=== PATIENT | male | born 1955 | race Asian ===

== ENCOUNTER → 2025-02-27 09:27 | Outpatient (CLI) | payer OTHER, SELFPAY | LOC: RESP 09:30 | PROVIDERS: PCP Family Medicine; Referring Provider Family Medicine; Visit Provider Family Medicine | DX: R06.09 Other forms of dyspnea (principal); J98.8 Other specified respiratory disorders; R94.2 Abnormal results of pulmonary function studies | CPT/HCPCS: 94060; 94726; 94729 ==

== ENCOUNTER → 2025-06-07 11:42 | Outpatient (CLI) | payer OTHER, SELFPAY ==
--- NOTE | 2025-06-26 22:03 | DI.NM.S_ITS ---
DATE OF SERVICE: 06/07/2025 NUCLEAR CARDIOLOGY MYOCARDIAL PERFUSION STUDY PROCEDURE PERFORMED: Exercise treadmill stress and rest myocardial perfusion imaging study with gating to assess ejection fraction and regional wall motion. ORDERING PROVIDER: Ela Oliveira M.D. INDICATIONS: The patient is a 70-year-old male with bradycardia, COPD, and exertional dyspnea. CARDIAC STRESS: The patient was able to exercise for 5 minutes 34 seconds on a standard Julio protocol suggesting moderately reduced exercise capacity with an SUJATHA of +19%, achieving 7.0 METS. He had a normal heart rate and blood pressure response to exercise with a resting heart rate of 62 bpm increasing to a maximum of 142 (93% of his predicted maximum). He had moderate exertional dyspnea but no chest discomfort or other anginal symptoms. His resting ECG is normal with normal ST segments. There are no significant ST-segment shifts or arrhythmias with stress. At 4 minutes 30 seconds of exercise at a heart rate of 133 bpm, 25.2 millicuries of technetium-99m Myoview was injected and he was imaged 15 minutes later using a gated SPECT acquisition protocol. He returned 16 days later and re-injected with an additional 27.1 millicuries of technetium- 99m Myoview and was imaged 15 minutes later, again using a gated SPECT acquisition protocol. FINDINGS: 1. Raw data. There is fairly good myocardial tracer uptake but with evidence for diaphragmatic attenuation. The lung/heart ratio is normal at 0.27 with a normal TID ratio of 0.76. 2. Quantitated gated SPECT: Post-stress ejection fraction is 75% without any focal wall motion abnormality and specifically the inferior wall has normal contractility. There is mildly increased tracer activity in the right ventricular free wall which can be a sign of right ventricular overload condition but clinical correlation is needed. The resting ejection fraction is 64% but visually appears unchanged from the post-stress ejection fraction. The resting end-diastolic volume is normal at 66 mL. 3. Myocardial perfusion imaging: Post-stress supine images show a fairly normal myocardial perfusion pattern except for a subtle defect in the mid inferior wall consistent with diaphragmatic attenuation, supported by its complete resolution on the prone images revealing a uniform, homogeneous perfusion pattern without any perfusion defects. The resting images are slightly compromised by some subdiaphragmatic tracer activity but the inferior defect grossly appears to be unchanged from the post-stress supine images without any obvious areas of improvement. IMPRESSION: 1. Normal myocardial perfusion study for ischemia. 2. Subtle, fixed inferior wall defect that completely resolves on prone imaging, consistent with diaphragmatic attenuation artifact. There is no evidence for myocardial ischemia or previous myocardial infarction. 3. Normal left ventricular size and systolic function without any focal abnormality. There is mildly increased right ventricular free wall tracer uptake which can be a sign of right ventricular overload condition but requires clinical correlation. 4. Moderately reduced exercise capacity without angina or ECG evidence of ischemia. There were no arrhythmias and he had a normal heart rate response to exercise, achieving a maximum heart rate of 142 bpm (93% of his predicted maximum). Lam Razo - ABISAI/sushma/NGOC doc#: [id number]/job#: [id number] dd: 06/26/2025 16:40:00 dt: 06/26/2025 21:49:00 DICTATING MD/COPIES TO: Dale Huang MD; Ela Oliveira M.D. COPIES MNE: MINDY;
== END ==
LOC: NUCM 11:42
PROVIDERS: PCP Family Medicine; Referring Provider Internal Medicine Cardiovascular Disease; Visit Provider Internal Medicine Cardiovascular Disease
DX: R06.02 Shortness of breath (principal)
CPT/HCPCS: 78452; 93017; A9502

== ENCOUNTER → 2025-06-23 12:34 | Outpatient (CLI) | payer OTHER, SELFPAY ==
--- NOTE | 2025-06-23 12:35 | DI.ECHO.S_ITS ---
[place] [facility] : : [address] : : [place] : : [id number] : : Phone: [phone] Echocardiogram Report + + :Name: LEXI SALEH Study Date: 06/23/2025 Height: 67 in : :[facility] ReadingLocation: Weight: 148 lb : : Gender: Male BSA: 1.8 m2 : :: 1955 Age: 70 yrs BP: 158/92 mmHg: :Reason For Study: Shortness of breath : :Ordering Physician: EMILY, : :ARNALDO Loaiza Performed By: Ciro Hoang : :Referring: ARNALDO DIAZ : + + Interpretation Summary Sinus bradycardia in the 40s. The ejection fraction is estimated to be 60-65%. Normal diastolic function. The right ventricle is normal in size and function. No significant valvular abnormalities. Pulmonary artery pressures cannot be estimated because of the lack of a measurable TR jet velocity but the IVC suggests a CVP of around 3 mmHg. Procedure: A two-dimensional transthoracic echocardiogram with color flow and Doppler was performed. The study quality was technically adequate. There is no prior echocardiogram noted for this patient. The patient was in a bradycardic rhythm during the exam. Left Ventricle: The left ventricle is normal in size and wall thickness. Left ventricular systolic function is normal. The ejection fraction is estimated to be 60-65%. There are no focal wall motion abnormalities. Normal diastolic function. Right Ventricle: The right ventricle is normal in size and function. Atria: The left atrial size is normal. Right atrial size is normal. There is no Doppler evidence for an interatrial shunt. Mitral Valve: The mitral valve leaflets appear to open well. There is no mitral valve stenosis. There is trace mitral regurgitation. Aortic Valve: The aortic valve is trileaflet. The aortic valve opens well. There is no aortic valve stenosis. No aortic regurgitation is present. Tricuspid Valve: The tricuspid valve leaflets are thin and pliable. There is trace tricuspid regurgitation. Pulmonary artery pressures cannot be estimated because of the lack of a measurable TR jet velocity but the IVC suggests a CVP of around 3 mmHg. Pulmonic Valve: The pulmonic valve is not well seen, but is grossly normal. There is trace pulmonic regurgitation. Great Vessels: The aortic root is normal size. The ascending aorta is normal in size. The aortic arch could not be visualized. The IVC is of normal diameter and collapses greater than 50% with a sniff. This suggests a low right atrial pressure of 3 mm Hg. Pericardium/ Pleura There is no pericardial effusion. MMode/2D Measurements & Calculations LVIDd: 4.6 cm LVOT diam: 2.0 cm LVIDs: 3.0 cm Ao root diam: 3.1 cm FS: 33.9 % asc Aorta Diam: 3.0 cm IVSd: 0.95 cm LVPWd: 0.93 cm LV tomlin. diameter/BSA (cm/m^2): 2.6 LV sys. diameter/BSA (cm/m^2): 1.7 LA A2 area: 13.0 cm2 RA long axis: 4.6 cm LA A4 area: 12.3 cm2 RA area: 10.4 cm2 LA length (vol): 4.5 cm RA vol: 19.7 ml LA vol: 29.9 ml RA : 11.1 ml/m2 LA vol index: 16.8 ml/m2 IVC diam: 1.3 cm RVD1 (basal): 2.7 cm RVD2 (mid): 2.4 cm TAPSE: 1.9 cm Doppler Measurements & Calculations Ao V2 max: 110.5 cm/sec LVOT Max Gio: 88.9 cm/sec Ao V2 mean: 75.6 cm/sec LV V1 max P.2 mmHg Ao max P.9 mmHg LV V1 VTI: 18.9 cm Ao mean P.6 mmHg QUENTIN(I,D): 2.3 cm2 Ao V2 VTI: 25.0 cm QUENTIN(V,D): 2.5 cm2 sev ratio: 0.75 QUENTIN indexed to BSA (cm^2/m^2): 1.3 MV E max gio: 55.0 cm/sec PA V2 max: 80.2 cm/sec MV A max gio: 47.6 cm/sec PA V2 mean: 57.7 cm/sec MV E/A: 1.2 PA mean P.5 mmHg Med Peak E' Gio: 7.2 cm/sec PA pr(Accel): 15.6 mmHg E/E' med: 7.7 Lat Peak E' Gio: 7.6 cm/sec E/E' lat: 7.2 E/e' average: 7.4 MV dec time: 0.22 sec SV(LVOT): 57.7 ml Reading Physician:06:21 PM
== END ==
LOC: NUCM 12:35
PROVIDERS: PCP Family Medicine; Referring Provider Internal Medicine Cardiovascular Disease; Visit Provider Internal Medicine Cardiovascular Disease
DX: R06.02 Shortness of breath (principal)
CPT/HCPCS: 93306

== ENCOUNTER → 2025-09-04 09:36 | Outpatient (CLI) | payer OTHER, SELFPAY ==
[2025-09-04 10:50] LABS: Add Manual Diff / Slide Review NO; Hematocrit 46.5 % (41-53); Hemoglobin 16.2 g/dL (13.5-17.5); Lymphocytes Absolute Auto 1100 /uL (1100-4500); Mean Corpuscular HGB Conc 34.8 % (30-36); Mean Corpuscular Hemoglobin 33.2 PG (26-34); Mean Corpuscular Volume 95.5 fL (80-100); Platelet Count 207 X10^3/uL (150-400)
[2025-09-04 10:58] LABS: Hemoglobin A1C% w Est Avg Glu 5.6 % (4.0-6.0)
[2025-09-04 11:27] LABS: Alanine Aminotransferase 34 IU/L (<50); Albumin 4.7 g/dL (3.5-5.0); Albumin Globulin Ratio 1.8 (1.0-2.8); Alkaline Phosphatase 58 U/L (38-126); Blood Urea Nitrogen 18 mg/dL (9-20); Calcium 9.3 mg/dL (8.4-10.2); Carbon Dioxide 27 mmol/L (22-32); Chloride 105 mmol/L (98-107); Cholesterol 216 mg/dL (140-199); Estimated Glomerular Filt Rate 59 mL/min (>60); Globulin 2.6 g/dL (1.7-4.1); Glucose 105 mg/dL (70-99); HDL Cholesterol 50 mg/dL (40-60); HEMOLYSIS < 15 (0-50); Potassium 4.6 mmol/L (3.4-5.1); Sodium 141 mmol/L (137-145); Total Protein 7.3 g/dL (6.3-8.2); Triglycerides 139 mg/dL (35-150)
[2025-09-04 11:54] LABS: Ferritin 332 ng/mL (18-464)
== END ==
PROVIDERS: PCP Family Medicine; Referring Provider Family Medicine; Visit Provider Family Medicine
DX: R53.82 Chronic fatigue, unspecified (principal); G47.00 Insomnia, unspecified; G47.30 Sleep apnea, unspecified; R00.1 Bradycardia, unspecified; J45.909 Unspecified asthma, uncomplicated; R06.02 Shortness of breath; Z13.220 Encounter for screening for lipoid disorders
CPT/HCPCS: 36415; 80053; 80061; 82728; 83036; 83695; 85025

== ENCOUNTER → 2025-09-05 08:02 | Outpatient (CLI) | payer OTHER, SELFPAY ==
--- NOTE | 2025-09-05 08:03 | DI.CT.S_ITS ---
PROCEDURE: CT CHEST WO CON INDICATIONS: chronic fatigue, SOB TECHNIQUE: Noncontrast 5 mm thick sections acquired from the pulmonary apices to the posterior costophrenic angles. 1 mm lung window, 5 mm thick coronal and sagittal and 7 mm axial MIP reformats were then acquired. For radiation dose reduction, the following was used: automated exposure control, adjustment of mA and/or kV according to patient size. COMPARISON: None. FINDINGS: Image quality: Diagnostic. Lower Neck: No enlarged lymph nodes. Thyroid: No thyroid nodules which require sonographic follow up, per consensus guidelines. Axillae: No enlarged lymph nodes. Chest Wall: Unremarkable. Bones: Unremarkable. Lungs and Pleura: No pneumothorax or pleural effusions. No consolidation or suspicious nodules. 3 mm right middle lobe nodule noted on image 206. Mild bronchial wall thickening. Heart: Heart size is normal. No pericardial effusion. Coronary artery calcifications are noted. The aorta and pulmonary arteries demonstrate normal size. Calcifications are noted in the thoracic arch. Thoracic Vessels: The aorta and pulmonary arteries demonstrate normal size. Mediastinum and Shelia: No enlarged lymph nodes. Esophagus: No wall thickening. Small hiatal hernia. Upper Abdomen: Status post cholecystectomy. Otherwise, visualized upper abdomen solid organs and bowel loops appear normal in the absence of contrast. IMPRESSION: Mild nonspecific bronchial wall thickening. Findings could be associated with bronchitis and reactive airways disease in the appropriate clinical circumstances. No acute pulmonary process. Coronary calcifications. No cardiomegaly, pericardial effusion or adenopathy. Dictated by: Lesly Burton M.D. on 09/08/2025 at 20:35 Approved by: Lesly Burton M.D. on 09/08/2025 at 20:42
== END ==
LOC: CT 08:03
PROVIDERS: PCP Family Medicine; Referring Provider Family Medicine; Visit Provider Family Medicine
DX: G47.30 Sleep apnea, unspecified (principal); G47.00 Insomnia, unspecified; R53.82 Chronic fatigue, unspecified; R00.1 Bradycardia, unspecified; J45.909 Unspecified asthma, uncomplicated; R06.02 Shortness of breath; I25.10 Atherosclerotic heart disease of native coronary artery without angina pectoris
CPT/HCPCS: 71250